=== PATIENT | male | born 1985 | race Caucasian/White ===

== ENCOUNTER 2018-07-10 20:55 | Emergency (ER) | payer OTHER ==
[~2018-07-10] VITALS: Ht 177.8 cm; Wt 74.8 kg
== END 2018-07-10 23:25 | disposition home or self-care (01) ==
LOC: ER 20:55
DX: M54.6 Pain in thoracic spine (principal); M54.5 Low back pain; M54.2 Cervicalgia

== ENCOUNTER → 2018-07-22 | Emergency (ER) | payer OTHER ==
[~2018-07-22] VITALS: Ht 177.8 cm; Wt 74.8 kg
[~2018-07-22] MED LIST: DICLOFENAC SODI75 MG; DICLOFENAC SODI75 MG PO; ORPHENADRI30 MG/1 ML
== END | disposition home or self-care (01) ==
LOC: ER 04:55
DX: M54.89 Other dorsalgia (principal)